=== PATIENT | female | born 2000 | race Caucasian/White ===

== ENCOUNTER 2020-04-14 01:02 | Emergency (ER) | payer OTHER ==
[2020-04-14] MEDS ORDERED: Ondansetron PF 4 MG/2 ML Vial ONE (01:20)
== END 2020-04-14 02:37 | disposition home or self-care (01) ==
LOC: ERS 01:02
DX: F10.129 Alcohol abuse with intoxication, unspecified (principal)
CPT/HCPCS: 96374; J2405

== ENCOUNTER 2020-09-02 00:51 | Emergency (ER) | payer OTHER ==
[2020-09-02] MEDS ORDERED: HYDROcodone/Acetaminophen 5/325 mg Tablet ONE (03:59)
[2020-09-02] MEDS ORDERED: cefTRIAXone\\ROCEPHIN 500 MG VIAL ONE (04:20)
[2020-09-02] MEDS ORDERED: Lidocaine 1% PF 5 ML VIAL ONE (04:20)
[2020-09-02 04:30] LABS: MONO NEGATIVE CONTROL ZONE White (Negative) (White); MONO POSITIVE CONTROL Pink Line (Positive) (PINK/RED); Mononucleosis NEGATIVE (NEGATIVE)
[2020-09-02] MEDS ORDERED: Dexamethasone 10 MG/ML VIAL ONE (04:47)
== END 2020-09-02 04:53 | disposition home or self-care (01) ==
LOC: ERS 00:51
DX: J02.9 Acute pharyngitis, unspecified (principal)
CPT/HCPCS: 36415; 86308; 87081; 87430; 96374; J0696; J1100